=== PATIENT | female | born 1960 | race Two or more races ===

== ENCOUNTER 2020-07-11 07:33 | Outpatient (REF) | payer MEDICAID, SELFPAY | END 2020-07-11 07:34 | disposition home or self-care (01) | LOC: HO.SCI 07:33 | DX: Z13.89 Encounter for screening for other disorder (principal) ==

== ENCOUNTER 2020-08-21 13:37 | Outpatient (REF) | payer MEDICAID, SELFPAY ==
--- NOTE | 2020-09-02 14:40 | MHC.AU.P13 ---
Adult Audiological Evaluation Date of Visit: 08/21/20 [employer]man Used: [place]- In Person Reason for Appointment: Patient reports hearing difficulty in her right ear, as well as constant tinnitus. She reports that she saw a few specialists about 5 years ago while living in [facility]. One specialist said she may have an obstruction in her middle ear. The other specialist said the patient's jaw problems are likely contributing to her ear problems, and suggested seeing a maxillofacial specialist. Patient also reports that she used to experience frequent congestion and nasal drainage. Ear History: Bothersome Tinnitus/Ringing/Noises in Ears: Right Ear Medical History: Medical History: Jaw Problems, Large B-Cell Lymphoma. Patient received 8 months of chemotherapy. Otoscopy: Right Ear: Unremarkable Left Ear: Unremarkable Tympanometry: Right Ear: Normal Middle Ear System (Type A) Left Ear: Normal Middle Ear System (Type A) Hearing Evaluation: Transducer(s) Used: Insert Earphones Method: Conventional Audiometry Stimuli Used: Pure Tones Right Ear: Description of Hearing: Normal sloping to mild and rising to normal; a conductive component is present throughout Left Ear: Description of Hearing: Overall normal; however, a conductive component is present throughout Speech Recognition Threshold (SRT): Method Used: Recorded Lists Right Ear: 30 dBHL Left Ear: 30 dBHL Word Discrimination: Method: Recorded Lists Word Lists Used: Lista Bisil?bica ([place]) Right Ear: 100% at 60 dBHL Left Ear: 100% at 60 dBHL Recommendations: Audiological re-evaluation in one year. Referrals to an Ear, Nose, and Throat specialist, as well as a maxillofacial specialist, are recommended for continuity of care, and to address right-sided hearing loss. Amplification is not warranted at this time. 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
== END 2020-08-21 13:38 | disposition home or self-care (01) ==
LOC: HO.SH 13:37
PROVIDERS: Visit Provider Internal Medicine
DX: H90.11 Conductive hearing loss, unilateral, right ear, with unrestricted hearing on the contralateral side (principal)
CPT/HCPCS: 92557; 92567

== ENCOUNTER 2020-08-29 14:33 | Outpatient (REF) | payer MEDICAID, SELFPAY ==
--- NOTE | 2020-08-29 | US_ITS ---
EXAMINATION: MM DIAGNOSTIC DIGITAL BREAST TOMOSYNTHESIS, BILATERAL US DIAGNOSTIC ULTRASOUND BREAST, BILATERAL CLINICAL INFORMATION: 59-year-old with chronic fullness and pain outer left breast and chronic pain outer right breast. Finding is noted since implants placed many years ago. Prior mammography from [place] unavailable. The lifetime risk of breast cancer based on the Tyrer-Cuzick Model is 7%. COMPARISON: None (current study represents no baseline exam). TECHNIQUE: Digital mammography is performed in craniocaudal and mediolateral oblique views along with computer-aided detection (CAD). Digital breast tomosynthesis is performed in implant-displaced craniocaudal and implant-displaced mediolateral oblique views along with computer-aided detection (CAD). Synthesized 2D images are generated from the tomosynthesis. Additional implant displaced left exaggerated CC view provided. Ultrasound left breast is targeted to the area of clinical concern outer breast. Ultrasound right breast is targeted to the area of clinical concern outer breast. Both breasts are imaged with grayscale imaging and color Doppler without and with harmonics. FINDINGS: There are scattered areas of fibroglandular density (ACR BI-RADS breast composition Category b). There are bilateral subpectoral silicone implants with smooth contours. The breast parenchymal pattern is unremarkable. There is no significant mass or architectural abnormality or abnormal calcifications. The axilla and skin contours are unremarkable. There is no skin thickening or coarsening of the Amish's ligaments. Targeted bilateral breast ultrasound shows no cystic or solid mass, architectural abnormality, or focal duct ectasia. No skin thickening or edema tracking in soft tissue planes. Results are discussed with the patient at time of visit, using an graphic engineer. US/US breast RT limited IMPRESSION: 1. No mammographic evidence of malignancy or inflammatory changes. 2. Unremarkable bilateral targeted breast ultrasound.. ASSESSMENT: BI-RADS 1: Negative RECOMMENDATION: 1. Patient's chronic bilateral breast pain should be managed based on the clinical impression. If there is still clinical palpable concern, further evaluation may be considered with surgical consult. Decision to proceed with biopsy should be based on clinical grounds and degree of clinical concern. 2. Otherwise, routine annual screening mammography. This patient's information was entered into a reminder system with a target due date for their next mammogram.
--- NOTE | 2020-08-29 14:37 | MM_ITS ---
EXAMINATION: MM DIAGNOSTIC DIGITAL BREAST TOMOSYNTHESIS, BILATERAL US DIAGNOSTIC ULTRASOUND BREAST, BILATERAL CLINICAL INFORMATION: 59-year-old with chronic fullness and pain outer left breast and chronic pain outer right breast. Finding is noted since implants placed many years ago. Prior mammography from [place] unavailable. The lifetime risk of breast cancer based on the Tyrer-Cuzick Model is 7%. COMPARISON: None (current study represents no baseline exam). TECHNIQUE: Digital mammography is performed in craniocaudal and mediolateral oblique views along with computer-aided detection (CAD). Digital breast tomosynthesis is performed in implant-displaced craniocaudal and implant-displaced mediolateral oblique views along with computer-aided detection (CAD). Synthesized 2D images are generated from the tomosynthesis. Additional implant displaced left exaggerated CC view provided. Ultrasound left breast is targeted to the area of clinical concern outer breast. Ultrasound right breast is targeted to the area of clinical concern outer breast. Both breasts are imaged with grayscale imaging and color Doppler without and with harmonics. FINDINGS: There are scattered areas of fibroglandular density (ACR BI-RADS breast composition Category b). There are bilateral subpectoral silicone implants with smooth contours. The breast parenchymal pattern is unremarkable. There is no significant mass or architectural abnormality or abnormal calcifications. The axilla and skin contours are unremarkable. There is no skin thickening or coarsening of the Amish's ligaments. Targeted bilateral breast ultrasound shows no cystic or solid mass, architectural abnormality, or focal duct ectasia. No skin thickening or edema tracking in soft tissue planes. Results are discussed with the patient at time of visit, using an software integration developer. MM/MM diagnostic mammo implant BI IMPRESSION: 1. No mammographic evidence of malignancy or inflammatory changes. 2. Unremarkable bilateral targeted breast ultrasound.. ASSESSMENT: BI-RADS 1: Negative RECOMMENDATION: 1. Patient's chronic bilateral breast pain should be managed based on the clinical impression. If there is still clinical palpable concern, further evaluation may be considered with surgical consult. Decision to proceed with biopsy should be based on clinical grounds and degree of clinical concern. 2. Otherwise, routine annual screening mammography. This patient's information was entered into a reminder system with a target due date for their next mammogram.
== END 2020-08-29 14:34 | disposition home or self-care (01) ==
LOC: HO.MAMMO 14:33
PROVIDERS: Visit Provider Advanced Practice Midwife
DX: N63.23 Unspecified lump in the left breast, lower outer quadrant (principal); N64.4 Mastodynia; Z98.82 Breast implant status
CPT/HCPCS: 76642; 77066